=== PATIENT | male | born 1945 | race Caucasian/White ===

== ENCOUNTER 2019-05-09 11:20 | Emergency (ER) | payer OTHER ==
[~2019-05-09] VITALS: Ht 172.7 cm; Wt 64.0 kg
[2019-05-09 12:44] LABS: ABSOLUTE NEUTROPHILS 12.1 thou/uL (1.4-8.2); BASOPHILS 1.1 % (0.0-2.0); EOSINOPHILS 1.9 % (0.0-3.0); HEMATOCRIT 52.4 % (42.0-52.0); HEMOGLOBIN 16.9 gm/dL (14.0-18.0); LYMPHOCYTES 10.9 % (24.0-44.0); MCH 25.9 pg (26.0-34.0); MCHC 32.3 g/dL (28.0-37.0); MCV 80.4 fL (80.0-100.0); MONOCYTES 5.2 % (1.0-8.0); PLATELET COUNT 302 thou/uL (150-400); POLYS 80.9 % (36.0-66.0); RBC 6.51 mil/uL (4.50-6.00); RDW 18.3 % (10.5-14.5); WBC 14.9 thou/uL (4.0-11.0)
[2019-05-09 13:24] LABS: ANISOCYTOSIS 2+
[2019-05-09 13:53] LABS: ANION GAP 8 mmol/L (7-16); BUN 17 mg/dL (7-18); CALCIUM 9.2 mg/dL (8.5-10.1); CHLORIDE 102 mmol/L (98-107); CO2 28 mmol/L (21-32); CREATININE 1.1 mg/dL (0.7-1.3); GLUCOSE 95 mg/dL (74-106); POTASSIUM 3.6 mmol/L (3.5-5.1); SODIUM 138 mmol/L (136-145)
[2019-05-09 14:04] LABS: ALBUMIN 2.9 g/dL (3.4-5.0); LIPASE 112 U/L (73-393); SGOT 52 U/L (15-37); SGPT 49 U/L (30-65); TOTAL BILIRUBIN 0.6 mg/dL (<0.1-1.0); TOTAL PROTEIN 6.9 g/dL (6.4-8.2); TROPONIN-I <0.06 ng/mL (<0.06)
[2019-05-09 14:13] LABS: URINE BILIRUBIN NEGATIVE (Negative); URINE BLOOD TRACE (Negative); URINE CLARITY CLEAR; URINE COLOR YELLOW; URINE GLUCOSE-RANDOM* NEGATIVE (Negative); URINE KETONES NEGATIVE (Negative); URINE NITRITE-REFLEX NEGATIVE (Negative); URINE PROTEIN (DIPSTICK) NEGATIVE (Negative); URINE UROBILINOGEN 0.2 E.U./dl (0.2-1.0)
[2019-05-09 14:14] LABS: URINE LEUKOCYTES-REFLEX 1+ (Negative)
[2019-05-09 14:22] LABS: BACTERIA-REFLEX 1-9 Few /HPF (None Seen); CASTS None Seen /LPF (None Seen); CRYSTALS None Seen /LPF (None Seen); SQUAMOUS None Seen /LPF (0-3); URINE RBC 0-2 Rare /HPF (0-2); URINE WBC-REFLEX 6-15 Few /HPF (0-5)
[2019-05-09] MEDS ORDERED: ONDANSETRON HCL4 M2 PO (14:25)
[2019-05-09 14:30] VITALS: BP 131/76
--- NOTE | 2019-05-09 16:24 | EKG ---
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: [facility] : 1945 Requested By: Sayra Ponce Order Number: [id number] MD: Cameron Ovalle Measurements Intervals [place] Rate: 81 P: SD: QRS: 1 QRSD: 105 T: 56 QT: 413 QTc: 480 Interpretive Statements Atrial fibrillation Ventricular premature complex Poor R wave progression Borderline prolonged QT interval No previous ECG available for comparison Electronically Signed On 05-09-2019 16:24:32 CDT by Cameron Ovalle [email or web address] ��������������������������������������������� <ELECTRONICALLY SIGNED> ���������������������������������������� By: Cameron Ovalle MD, [facility] ��������������������������������������������� 05/09/19 1624 1142 1142 Cameron Ovalle MD, FACC /EPI
== END 2019-05-09 14:30 | disposition home or self-care (01) ==
LOC: ER 11:20
PROVIDERS: Physician Assistant
DX: R11.2 Nausea with vomiting, unspecified (principal); R42 Dizziness and giddiness; J44.9 Chronic obstructive pulmonary disease, unspecified; Z88.1 Allergy status to other antibiotic agents